=== PATIENT | female | born 1965 | race American Indian/Alaskan Native ===

== ENCOUNTER 2017-08-07 08:43 | Emergency (ER) | payer SELFPAY ==
[2017-08-07] MEDS ORDERED: DILAUDID ONE (10:11)
[2017-08-07] MEDS ORDERED: ZOFRAN ONE (10:14)
[2017-08-07] MEDS ORDERED: DILAUDID IV ONE (10:15)
[2017-08-07] MEDS ORDERED: ZOFRAN IV ONE (10:21)
[2017-08-07 10:25] LABS: Basophils % (Auto) 0.4 % (0.0-1.8); Eosinophils % (Auto) 0.4 % (0.0-4.3); Hematocrit 36.7 % (30.3-42.9); Mean Corpuscular HGB Conc 33 % (30-34); Mean Corpuscular Hemoglobin 28 pg (28-32); Mean Corpuscular Volume 87 fl (79-97); Monocytes # (Auto) 0.6 K/mm3 (0.0-0.8); Monocytes % (Auto) 6.5 % (0.0-7.3); Platelet Count 337 K/mm3 (140-440); Red Blood Count 4.23 M/mm3 (3.65-5.03); Red Cell Distribution Width 15.3 % (13.2-15.2)
--- NOTE | 2017-08-07 11:13 | Emergency Department Report ---
ED Female HPI - General Chief complaint: Vaginal Bleeding Stated complaint: ABD PAIN/VAG BLEED Time Seen by Provider: 08/07/17 09:21 Source: patient Mode of arrival: Ambulatory Limitations: No Limitations - History of Present Illness Initial comments: 52-year-old female with a past medical history of hypertension and iron deficiency anemia status post tubal ligation in 1989 presents to the hospital complaining of heavy vaginal bleeding or significant abdominal pain since yesterday. Suprapubic abdominal pain was constant, cramping, rated 10/10 intensity. Pain is worse with palpation and no alleviated factors. Patient also complains of some left sided mid abdominal pain as well. Positive so she had nausea and 3 episodes of vomiting. Patient states she typically gets her menstrual cycle every month but skipped the last 2 months until bleeding started on the fourth. She has used 3 pads since this morning but now feels that bleeding is slowing down. Patient initially told triage she has history of ectopic , it appears the patient had a miscarriage and not an ectopic denies surgical treatment or received methotrexate. Patient received Dilaudid and Zofran prior to my evaluation with improvement of symptoms. Patient has 1 partner that she has sex with intermittently and typically uses condoms. Her partner did not use a condom during the last sexual encounter. [facility] physicians: [facility] - Related Data Previous Rx's Medication Instructions Recorded Last Taken Type amLODIPine [Norvasc] 10 mg PO DAILY #30 tablet 11/30/14 Unknown Rx Ferrous Sulfate [Iron] 325 mg PO DAILY #30 tablet 08/07/17 Unknown Rx HYDROcodone/APAP 5-325 [Tolar 1 each PO Q6HR PRN #20 tablet 08/07/17 Unknown Rx 5/325] Ibuprofen [Motrin] 800 mg PO Q8HR PRN #30 tablet 08/07/17 Unknown Rx Ondansetron [Zofran Odt] 4 mg PO Q8HR PRN #15 tab.rapdis 08/07/17 Unknown Rx Allergies Allergy/AdvReac Type Severity Reaction Status Date / Time No Known Allergies Allergy Verified 07/19/15 10:37 ED Review of Systems ROS: Stated complaint: ABD PAIN/VAG BLEED Other details as noted in HPI Comment: All other systems reviewed and negative Other: Constitutional: No fevers chills Eyes: No eye pain visual changes ENT: No ear pain or throat pain Neck: Denies pain Respiratory: Denies cough wheezing shortness of breath Cardiovascular: Denies chest pain, palpitations, syncope GI: Denies diarrhea : Denies dysuria Musculoskeletal: Denies back pain Skin: Denies rash, lesions, erythema Neurologic: Denies headache, numbness, weakness Psychiatric: Denies suicidal ideation, hallucinations ED Past Medical Hx - Past Medical History Previous Medical History?: Yes Hx Hypertension: Yes Hx Congestive Heart Failure: No Hx Diabetes: No Hx Asthma: No Hx COPD: No Hx HIV: No Additional medical history: Anemia - Surgical History Past Surgical History?: Yes Additional Surgical History: "NECK SURGERY" , tubal ligation 1989 - Social History Smoking Status: Never Smoker Substance Use Type: None - Medications Home Medications: Home Medications Medication Instructions Recorded Confirmed Last Taken Type amLODIPine [Norvasc] 10 mg PO DAILY #30 tablet 11/30/14 08/06/15 Unknown Rx Ferrous Sulfate [Iron] 325 mg PO DAILY #30 tablet 08/07/17 Unknown Rx HYDROcodone/APAP 5-325 [Tolar 1 each PO Q6HR PRN #20 tablet 08/07/17 Unknown Rx 5/325] Ibuprofen [Motrin] 800 mg PO Q8HR PRN #30 tablet 08/07/17 Unknown Rx Ondansetron [Zofran Odt] 4 mg PO Q8HR PRN #15 tab.rapdis 08/07/17 Unknown Rx ED Physical Exam - General Limitations: No Limitations - Other Other exam information: General: No limitations, patient is alert in no acute distress Head exam: Atraumatic, normocephalic Eyes exam: Normal appearance ENT: Moist mucous membrane, normal oropharynx Neck exam: Normal inspection, full range of motion, no meningismus nontender Respiratory exam: Clear to auscultation bilateral, no wheezes, rales, crackles Cardiovascular: Normal rate and rhythm, normal heart sounds Abdomen: Soft, nondistended, suprapubic tenderness nontender, mild left mid abdominal tenderness, with normal bowel sounds, no rebound, or guarding : Moderate vaginal bleeding, no CMT or adnexal tenderness Extremity: Full range of motion normal inspection no deformity Back: Normal Inspection, full range of motion, no tenderness Neurologic: Alert, oriented x3, cranial nerves intact, no motor or sensory deficit Psychiatric: normal affect, normal mood Skin: Warm, dry, intact ED Course Vital Signs 08/07/17 08/07/1718 09:06 09:53 09:59 Temperature 98.4 F Pulse Rate 92 H 83 Respiratory 20 16 16 Rate Blood Pressure 171/88 Blood Pressure 166/83 [Left] O2 Sat by Pulse 100 100 Oximetry ED Medical Decision Making - Lab Data Result diagrams: 08/07/17 10:01 Lab Results 08/07/17 08/07/17 08/07/17 Range/Units 10:01 10:01 10:01 WBC 9.5 (4.5-11.0) K/mm3 RBC 4.23 (3.65-5.03) M/mm3 Hgb 12.0 (10.1-14.3) gm/dl Hct 36.7 (30.3-42.9) % MCV 87 (79-97) fl MCH 28 (28-32) pg MCHC 33 (30-34) % RDW 15.3 H (13.2-15.2) % Plt Count 337 (140-440) K/mm3 Lymph % (Auto) 11.0 L (13.4-35.0) % [place] % (Auto) 6.5 (0.0-7.3) % Eos % (Auto) 0.4 (0.0-4.3) % Baso % (Auto) 0.4 (0.0-1.8) % Lymph # 1.0 L (1.2-5.4) K/mm3 [place] # 0.6 (0.0-0.8) K/mm3 Eos # 0.0 (0.0-0.4) K/mm3 Baso # 0.0 (0.0-0.1) K/mm3 Seg Neutrophils % 81.7 H (40.0-70.0) % Seg Neutrophils # 7.8 H (1.8-7.7) K/mm3 HCG, Quant < 2 (0-4) mIU/mL Blood Type O POSITIVE Antibody Screen Negative Wet prep negative - Radiology Data Radiology results: report reviewed Transvaginal/pelvic ultrasound:fibroid uterus. Cyst in the right and left ovary. - Medical Decision Making Plan to discharge patient on pain medication and encouraged continuation of iron tablets for known chronic anemia. H&H and vitals stable in the ED - Differential Diagnosis miscarriage, , perimenopausal bleeding, fibroids Critical Care Time: No Critical care attestation.: If time is entered above; I have spent that time in minutes in the direct care of this critically ill patient, excluding procedure time. ED Disposition Clinical Impression: Dysmenorrhea, Menorrhagia, Uterine fibroid Ovarian cyst Qualifiers: Laterality: bilateral Qualified Code(s): N83.201 - Unspecified ovarian cyst, right side; N83.202 - Unspecified ovarian cyst, left side; N83.202 - Unspecified ovarian cyst, left side Disposition: TO HOME OR SELFCARE Is pt being admited?: No Condition: Stable Instructions: Uterine Fibroids (ED), Dysmenorrhea (ED), Ovarian Cyst (ED), Menorrhagia (ED) Additional Instructions: Follow-up with her [facility] doctor for further management. Take the medications as prescribed. Continue your current iron tablets. To the copy of your ultrasound to your doctors for further evaluation and workup. Your gonorrhea and chlamydia tests are pending and take approximately 3-4 days result. You may obtain results in medical records with a photo ID. You may also obtain results through the follow-up doctor office via medical record request. Prescriptions: Ferrous Sulfate [Iron] 325 mg PO DAILY #30 tablet HYDROcodone/APAP 5-325 [Tolar 5/325] 1 each PO Q6HR PRN #20 tablet PRN Reason: Pain Ibuprofen [Motrin] 800 mg PO Q8HR PRN #30 tablet PRN Reason: Pain Ondansetron [Zofran Odt] 4 mg PO Q8HR PRN #15 tab.rapdis PRN Reason: Nausea And Vomiting Referrals: [facility] [Provider Group] - 3-5 Days Time of Disposition: 13:18
--- NOTE | 2017-08-07 13:04 | Ultrasound Report ---
Pelvic and transvaginal sonography: History: Pelvic pain, vaginal bleeding. Findings: Uterus measures 9.4 x 5.4 cm centimeters. Endometrial thickness is 14 mm. Single fibroid in the mid anterior right uterus measures 2 x 2 0.2 x 2.6 cm and in the posterior aspect midportion measures 2.2 x 1.1 x 1.7 cm. Right ovary 4 x 1.9 x 4 cm. Cyst in the right ovary measures 2.6 cm. Left ovary 2.7 x 0.9 x 3.2 cm. Cyst in the left ovary measures 1.4 cm. Impression: Fibroid uterus. Cyst right and cyst left ovary.
[2017-08-07 13:18] LABS: Bilirubin,Urine NEG (Negative); Blood,Urine LG (Negative); Color,Urine Red (Yellow); Mucus,Urine FEW /HPF; Nitrite,Urine NEG (Negative); Protein,Urine <15 mg/dL mg/dL (Negative); Urobilinogen,Urine < 2.0 mg/dL (<2.0)
[2017-08-07 13:28] LABS: RBC,Urine > 182.0 /HPF (0.0-6.0)
[2017-08-07 14:23] VITALS: BP 144/61
== END 2017-08-07 14:22 | disposition home or self-care (01) ==
LOC: ED 08:43
DX: N83.201 Unspecified ovarian cyst, right side (principal); N83.202 Unspecified ovarian cyst, left side; N94.6 Dysmenorrhea, unspecified; N92.0 Excessive and frequent menstruation with regular cycle; D25.9 Leiomyoma of uterus, unspecified; I10 Essential (primary) hypertension
CPT/HCPCS: 36415; 76830; 76856; 81001; 84702; 85025; 86850; 86900; 86901; 87210; 87591; 96374; 96375; 99285; J1170; J2405